=== PATIENT | female | born 1990 | race Caucasian/White ===

== ENCOUNTER 2016-07-12 10:50 | Emergency (ER) | payer BC | END 2016-07-12 14:17 | disposition home or self-care (01) | LOC: ER 10:50 | DX: R11.2 Nausea with vomiting, unspecified (principal); R19.7 Diarrhea, unspecified; R10.9 Unspecified abdominal pain; F17.200 Nicotine dependence, unspecified, uncomplicated; Z88.1 Allergy status to other antibiotic agents | CPT/HCPCS: 36415; 96361; 96374 ==

== ENCOUNTER 2016-09-21 15:51 | Emergency (ER) | payer BC | END 2016-09-21 17:00 | disposition home or self-care (01) | LOC: ER 15:51 | DX: R11.2 Nausea with vomiting, unspecified (principal); R19.7 Diarrhea, unspecified; R10.9 Unspecified abdominal pain; Z88.1 Allergy status to other antibiotic agents ==